=== PATIENT | female | born 1945 | race Caucasian/White ===

== ENCOUNTER 2016-11-02 10:03 | Day surgery (SDC) | payer MEDICARE ==
[~2016-11-02] VITALS: Ht 167.6 cm; Wt 68.0 kg
[2016-11-02 11:20] VITALS: BP 137/77
[2016-11-02] MEDS ORDERED: AMLO10TA2 PO (11:37)
[2016-11-02] MEDS ORDERED: METO50TA82 PO (11:38)
[2016-11-02] MEDS ORDERED: LEVO88TA2 PO (11:39)
[2016-11-02] MEDS ORDERED: SIMV20TA3 PO (11:40)
[2016-11-02] MEDS ORDERED: CYCL1DRO EACHEYE (11:41)
[2016-11-02] MEDS ORDERED: ACYC-114 PO (11:42)
[2016-11-02] MEDS ORDERED: UBID100C11 PO (11:43)
[2016-11-02] MEDS ORDERED: ASPI-621 PO (11:43)
[2016-11-02] MEDS ORDERED: FENTANYL PF 100 MCG/2ML ONE (13:41)
[2016-11-02] MEDS ORDERED: MIDAZOLAM 1 MG/ML, 5ML ONE (13:41)
[2016-11-02] MEDS ORDERED: ISOPROTERENOL 0.2MG/ML, 5ML ONE (13:41)
[2016-11-02] MEDS ORDERED: LIDOCAINE 2%, 20ML ONE (13:42)
[2016-11-02 15:51] VITALS: BP 137/85
[2016-11-02] MEDS ORDERED: PLEASE ENTER ALLERGIES MC SCH ×2 (16:00)
[2016-11-02] MEDS ORDERED: OXYcodone IR 5MG TABLET PO PRN (18:30)
[2016-11-02] MEDS ORDERED: OXYcodone IR 5MG TABLET ONE (18:31)
[2016-11-02 19:10] VITALS: BP 123/76
[2016-11-02] MEDS ORDERED: [UNRECOGNIZED DRUG - OTHER] OP SCH (21:00)
[2016-11-02] MEDS ORDERED: CYCLOSPORINE OP SCH (21:00)
[2016-11-02] MEDS ORDERED: SIMVASTATIN 20 MG TABLET PO SCH (21:00)
[2016-11-03] MEDS ORDERED: LEVOTHYROXINE 88 MCG TABLET PO SCH (06:00)
[2016-11-03] MEDS ORDERED: ASPIRIN 81 MG TABLET EC PO SCH (06:00)
[2016-11-03] MEDS ORDERED: AMLODIPINE 5 MG TABLET PO SCH (09:00)
[2016-11-03] MEDS ORDERED: ACYCLOVIR 400 MG TABLET PO SCH (09:00)
== END 2016-11-02 20:42 | disposition home or self-care (01) ==
LOC: CACL 10:03 → 5SO 15:49 → CACL 20:42
PROVIDERS: ATTEND Internal Medicine Cardiovascular Disease
DX: I47.1 Supraventricular tachycardia (principal); I10 Essential (primary) hypertension; E78.5 Hyperlipidemia, unspecified; E03.9 Hypothyroidism, unspecified; Z88.0 Allergy status to penicillin; Z88.8 Allergy status to other drugs, medicaments and biological substances; Z72.89 Other problems related to lifestyle; Z82.49 Family history of ischemic heart disease and other diseases of the circulatory system
CPT/HCPCS: 93613; 93621; 93623; 93653; 99156; 99157; C1730; C1894; C2630; J2250; J3010; J3490